=== PATIENT | female | born 1960 | race American Indian/Alaskan Native ===

== ENCOUNTER 2018-09-03 10:14 | Day surgery (SDC) | payer BC ==
[2018-09-03] MEDS ORDERED: DILAUDID IV PRN (11:11)
[2018-09-03] MEDS ORDERED: SUBLIMAZE IV ONE (11:11)
[2018-09-03] MEDS ORDERED: DECADRON ONE (11:24)
[2018-09-03] MEDS ORDERED: VERSED IV NR (12:00)
[2018-09-03] MEDS ORDERED: NEURONTIN PO NR (12:00)
[2018-09-03] MEDS ORDERED: LACTATED RINGERS 1,000 ML IV SCH (12:00)
[2018-09-03] MEDS ORDERED: SUBLIMAZE ONE (12:01)
[2018-09-03] MEDS ORDERED: XYLOCAINE MPF 2% ONE (12:01)
[2018-09-03] MEDS ORDERED: DIPRIVAN 10 MG/ML IV ONE (12:02)
--- NOTE | 2018-09-03 12:05 | Anesthesia Consultation ---
Anesthesia Consult and Med Hx Date of service: 09/03/18 - Airway Anesthetic Teeth Evaluation: Good ROM Head & Neck: Adequate Mental/Hyoid Distance: Adequate Mallampati Class: Class II Intubation Access Assessment: Probably Good - Pulmonary Exam CTA: Yes - Cardiac Exam Cardiac Exam: RRR - Pre-Operative Health Status ASA Pre-Surgery Classification: ASA2 Proposed Anesthetic Plan: General Nerve Block: Adductor canal - Pulmonary Hx Smoking: No Hx Asthma: No Hx Respiratory Symptoms: No Hx Sleep Apnea: No (ASPEN PRE SCREEN HIGH RISK.) - Cardiovascular System Hx Hypertension: Yes (took lisinopril this morning) Hx Heart Attack/AMI: No Hx Percutaneous Transluminal Coronary Angioplasty (PTCA): No - Central Nervous System Hx Seizures: No CVA: No - Gastrointestinal Hx Gastroesophageal Reflux Disease: No - Endocrine Hx Renal Disease: No Hx Liver Disease: No Hx Non-Insulin Dependent Diabetes: Yes (last dose oral hypoglycemics 09/02/18) Hx Thyroid Disease: No - Other Systems Hx Obesity: Yes - Additional Comments Anesthesia Medical History Comments: No hx anesthetic complications. Consented for preop adductor canal block.
--- NOTE | 2018-09-03 12:06 | Anesthesia Day of Surgery ---
Anesthesia Day of Surgery - Day of Surgery Patient Examined: Yes Patient H&P Reviewed: Yes Patient is NPO: Yes
[2018-09-03] MEDS ORDERED: DEPO-Medrol ONE ×2 (12:46→14:48)
[2018-09-03] MEDS ORDERED: MARCAINE-EPI/PF 0.5%-1:200,000 INFILTRATI ONE ×3 (12:47→14:48)
[2018-09-03] MEDS ORDERED: ANCEF/STERILE WATER 2 GM/20 ML IV NR (13:00)
[2018-09-03] MEDS ORDERED: DEPO-Medrol INTRA-ARTI ONE ×2 (13:50→13:52)
[2018-09-03] MEDS ORDERED: MARCAINE-EPI/PF 0.5%-1:200,000 IJ ONE (13:50)
[2018-09-03] MEDS ORDERED: NEO SYNEPHRINE ONE (14:11)
[2018-09-03] MEDS ORDERED: NACL 0.9% 100 ML ONE (14:12)
[2018-09-03] MEDS ORDERED: ZOFRAN ONE (14:49)
[2018-09-03] MEDS ORDERED: TORADOL ONE (14:49)
[2018-09-03] MEDS ORDERED: NACL 0.9% 1000 ML 1,000 ML ONE (14:55)
[2018-09-03] MEDS ORDERED: NORCO 5/325 PO PRN (15:24)
--- NOTE | 2018-09-03 16:30 | Post Anesthesia Evaluation ---
- Post Anesthesia Evaluation Patient Participated: Yes Airway Patent: Yes Stable Respiratory Function: Yes Nausea/Vomiting: No Temp > 96.8F: Yes Pain Manageable: Yes Adequeate Hydration: Yes Anesthesia Complications: No
--- NOTE | 2018-09-03 16:50 | Procedure Note ---
Date of procedure: 09/03/18 Pre-op diagnosis: internal derangement right knee Post-op diagnosis: other (torn lateral meniscus along with grade 3 chondromalacia lateral compartment) Procedure: Arthroscopy right knee partial lateral meniscectomy and abrasion chondroplasty lateral compartment and medial femoral condyle Procedure The patient was brought to the OR after receiving a femoral nerve block for postop pain management she was then placed onto the OR table supine. Following induction with MAC anesthesia the patient's right lower extremity was prepped and draped in the usual sterile manner. A timeout procedure was done to identify the patient and the correct operative site. The leg was then exsanguinated followed by inflation of the pneumatic tourniquet to 300 mmHg. Routine arthroscopic portals were made following introduction of the arthroscope and insufflation of the knee joint with saline solution examination revealed these findings #1 she was noted to have a radial flap tear noted in the posterior horn of the lateral meniscus as well as some other fraying within the lateral meniscus also she also had a grade 3 chondromalacia involving the lateral femoral condyle articular surface as well as the corresponding tibial articular surface following this an arthroscopic shaver was brought in the lateral meniscus was then debrided back to healthier appearing cartilage tissue the articular cartilage was also debrided a small basket forceps was brought in and some remaining portions of the lateral meniscus was removed care was taken not to over debride this structure following this the arthroscope was placed into the intercondylar notch the anterior cruciate ligament was seen and appeared to be intact Medial compartment was explored the patient was noted to have a chondral defect seen in the medial femoral condyle area again using the shaver portions of the articular cartilage was debrided back to healthier appearing cartilage tissue the medial meniscus was seen and did not appear to have any tears noted following this the arthroscope was placed into the suprapatellar pouch. No loose bodies appreciated following this the knee joint was irrigated copiously the stab wounds were repaired using 3-0 nylon A Depo-Medrol lidocaine mixture was then injected into the right knee routine postop dressings were applied and the tourniquet was then deflated. The patient also had symptoms painful symptoms in the left knee and a Depo-Medrol lidocaine mixture was injected into this knee as well following this the patient was extubated and was taken to postanesthesia recovery in a stable condition Anesthesia: MAC, regional Surgeon: DIANA BECKHAM Estimated blood loss: none Pathology: none Condition: stable Disposition: PACU
[2018-09-03 19:19] VITALS: BP 122/72
== END 2018-09-03 17:55 | disposition home or self-care (01) ==
LOC: OR 10:14
PROVIDERS: ATTEND Orthopaedic Surgery
DX: S83.281A Other tear of lateral meniscus, current injury, right knee, initial encounter (principal); I10 Essential (primary) hypertension; E11.9 Type 2 diabetes mellitus without complications; F32.9 Major depressive disorder, single episode, unspecified; E66.9 Obesity, unspecified; Z68.37 Body mass index [BMI] 37.0-37.9, adult; Z79.899 Other long term (current) drug therapy; Z79.84 Long term (current) use of oral hypoglycemic drugs; Z88.8 Allergy status to other drugs, medicaments and biological substances; Z98.890 Other specified postprocedural states; Z86.2 Personal history of diseases of the blood and blood-forming organs and certain disorders involving the immune mechanism; X58.XXXA Exposure to other specified factors, initial encounter; Y93.89 Activity, other specified; Y92.89 Other specified places as the place of occurrence of the external cause; Y99.8 Other external cause status
CPT/HCPCS: 29881; 82962; J0690; J1030; J1100; J1170; J1885; J2250; J2370; J2405; J2704; J3010; J7030; J7120; 64450